=== PATIENT | male | born 2005 | race Two or more races ===

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

== ENCOUNTER 2024-02-19 16:53 | Emergency (ER) | payer OTHER ==
--- NOTE | 2024-02-19 17:19 | ED ---
Upper Extremity HPI - General Chief Complaint: Extremity Injury, Upper Stated Complaint: L Finger Injury Time Seen by Provider: 02/19/24 17:13 Source: patient, RN notes reviewed Mode of arrival: ambulatory Limitations: no limitations - History of Present Illness Initial Comments: 18-year-old male presenting with left hand injury 1 hour ago. States he was catching a football when his left fourth digit bent backwards. He states he has a cut and cannot move his finger. Last tetanus unknown. - Related Data Previous Rx's Medication Instructions Recorded Cephalexin [Keflex] 500 mg PO Q6HR 7 Days #28 cap 02/19/24 HYDROcodone/APAP 5-325MG [Nipomo 5] 1 each PO Q6HR PRN #12 tab 02/19/24 Allergies Allergy/AdvReac Type Severity Reaction Status Date / Time dinatap Allergy Rash/Hives Uncoded 02/19/24 16:58 Review of Systems ROS Statement: Those systems with pertinent positive or pertinent negative responses have been documented in the HPI. ROS Other: All systems not noted in ROS Statement are negative. Past Medical History Past Medical History: No Reported History History of Any Multi-Drug Resistant Organisms: None Reported Past Surgical History: Orthopedic Surgery Past Psychological History: No Psychological Hx Reported Smoking Status: Never smoker Past Alcohol Use History: None Reported Past Drug Use History: None Reported General Exam Limitations: no limitations General appearance: alert, in no apparent distress Head exam: Present: atraumatic, normocephalic, normal inspection Eye exam: Present: normal appearance, PERRL, EOMI. Absent: scleral icterus, conjunctival injection, periorbital swelling Left Upper Arm exam: Present: normal inspection, full ROM. Absent: tenderness, swelling Elbow exam: Present: normal inspection, full ROM. Absent: tenderness, swelling Forearm Wrist exam: Present: normal inspection, full ROM. Absent: tenderness, swelling Hand Wrist exam: Absent: normal inspection (5 cm laceration present on distal fourth digit of left hand with minimal bone protruding. Digit is fixed in hyperflexion. No active range of motion of PIP or DIP joint. Cap refill less than 2 seconds. Full sensation and radial pulses bilaterally), full ROM Course Vital Signs 02/19/24 02/19/24 16:55 18:43 Temperature 97.8 F 98 F Pulse Rate 71 76 Respiratory 16 18 Rate Blood Pressure 119/74 117/73 O2 Sat by Pulse 97 99 Oximetry Procedures - Laceration Laceration #1 Consent Obtained: verbal consent Indication: laceration Site: upper extremity Size (cm): 4 Description: linear Depth: [id number] Anesthetic Used: lidocaine 1%, without epi Amount (mls): 4 (Digital block) Pre-repair: wound explored, irrigated extensively Type of Sutures: nylon Size of Sutures: 4-0 Number of Sutures: 2 Technique: simple, interrupted Patient Tolerated Procedure: well, no complications Additional Comments: Neurovascularly intact status post procedure - Orthopedic Splinting/Casting Injury #1 Side: left Upper Extremity Injury Location: finger Upper Extremity Immobilizer: finger (other) Additional Comments: Neurovascularly intact status post splint Medical Decision Making - Medical Decision Making Was pt. sent in by a medical professional or institution (Dr. PA, ARTIST SUSPECT, urgent care, hospital, or [place] [facility] facility...) When possible be specific @ -No Did you speak to anyone other than the patient for history (EMS, parent, family, police, friend...)? What history was obtained from this source @ -No Did you review nursing and triage notes (agree or disagree)? Why? @ -I reviewed and agree with nursing and triage notes Were old charts reviewed (outside hosp., previous admission, EMS record, old EKG, old radiological studies, urgent care reports/EKG's, [place] health care facility records)? Report findings @ -No old charts were reviewed Differential Diagnosis (chest pain, altered mental status, abdominal pain women, abdominal pain men, vaginal bleeding, weakness, fever, dyspnea, syncope, headache, dizziness, GI bleed, back pain, seizure, CVA, palpatations, mental health, musculoskeletal)? @ -Differential Musculoskeletal Muscular strain, contusion, ligament sprain, fracture, arthritis, septic arthritis, bursitis, cellulitis, muscle spasm, nerve compression, DVT, arterial occlusion, herpes zoster, electrolyte abnormality, tumor.... This is not meant to be in all inclusive list EKG interpreted by me (3pts min.). @ -None X-rays interpreted by me (1pt min.). @ -X-ray revealed comminuted/displaced known intra-articular fracture of distal phalanx of fourth digit CT interpreted by me (1pt min.). @ -None done U/S interpreted by me (1pt. min.). @ -None done What testing was considered but not performed or refused? (CT, X-rays, U/S, labs)? Why? @ -None What meds were considered but not given or refused? Why? @ -None Did you discuss the management of the patient with other professionals (professionals i.e. , PA, ARTIST SUSPECT, lab, RT, psych nurse, social media developer, fast brim pouncer, teacher, commercial loan collection officer, case liner)? Give summary @ -I spoke with Daljit from [facility] who recommended patient follows up in office on Thursday. He recommended discharge after thorough irrigation, approximation with sutures, splint, and oral antibiotics. Was smoking cessation discussed for >3mins.? @ -No Was critical care preformed (if so, how long)? @ -No Were there social determinants of health that impacted care today? How? (Homelessness, low income, unemployed, alcoholism, drug addiction, transportation, low edu. Level, literacy, decrease access to med. care, [facility], rehab)? @ -No Was there de-escalation of care discussed even if they declined (Discuss DNR or withdrawal of care, Hospice)? DNR status @ -No What co-morbidities impacted this encounter? (DM, HTN, Smoking, COPD, CAD, Cancer, CVA, ARF, Chemo, Hep., AIDS, mental health diagnosis, sleep apnea, morbid obesity)? @ -None Was patient admitted / discharged? Hospital course, mention meds given and route, prescriptions, significant lab abnormalities, going to OR and other pertinent info. @ -Patient was discharged. Patient was seen and evaluated for left finger injury prior to arrival. Patient states he was catching a football when his lef t fourth digit bent backwards. Upon examination, patient has a 4 cm laceration on ventral aspect of fourth digit. Fourth digit is fixed in hyperflexion. Neurovascularly intact. Patient is given 2 g IV cefazolin, tetanus is updated, and patient is given IV morphine for pain. X-ray reveals comminuted/displaced not intra-articular fracture of distal phalanx of fourth digit. I spoke with Daljit from [facility] regarding this case who reviewed chart and imaging and recommended patient follows up in office on Thursday, and discharge after thorough irrigation, approximation with sutures, splint, and oral antibiotics. At this time, patient was given IV Toradol. Discussed diagnosis of open fracture with patient. Wound was thoroughly irrigated, nerve block was placed, 2 sutures were performed, and finger splint was placed with digit in full extension. Patient remains neurovascularly intact status post procedure. Strict return parameters discussed with patient and he shows understanding and agrees with plan. Instructed to follow-up with orthopedics on Thursday. Prescribed Keflex 4 times daily for 7 days and Nipomo for pain. Case was discussed with my attending Dr. Segovia. Patient discharged in stable condition. Undiagnosed new problem with uncertain prognosis? @ -No Drug Therapy requiring intensive monitoring for toxicity (Heparin, Nitro, Insulin, Cardizem)? @ -No Were any procedures done? @ -Wound thoroughly irrigated, 2 sutures performed, finger splint placed Diagnosis/symptom? @ -Open fracture of distal phalanx of fourth digit of left hand Acute, or Chronic, or Acute on Chronic? @ -Acute Uncomplicated (without systemic symptoms) or Complicated (systemic symptoms)? @ -Uncomplicated Side effects of treatment? @ -No Exacerbation, Progression, or Severe Exacerbation? @ -No Poses a threat to life or bodily function? How? (Chest pain, [place], [place], pneumonia, PE, COPD, DKA, ARF, appy, cholecystitis, CVA, Diverticulitis, Homicidal, Suicidal, threat to staff... and all critical care pts) @ -Low likelihood Disposition Clinical Impression: Open fracture of distal phalanx of digit of left hand Disposition: HOME SELF-CARE Condition: Stable Instructions (If sedation given, give patient instructions): Hand Fracture (ED) Additional Instructions: Please follow-up with orthopedics Thursday. Take antibiotics as prescribed. Keep splint in place. Please return to the Emergency Department if symptoms worsen or any other concerns. Prescriptions: Cephalexin [Keflex] 500 mg PO Q6HR 7 Days #28 cap HYDROcodone/APAP 5-325MG [Nipomo 5] 1 each PO Q6HR PRN #12 tab PRN Reason: Pain Is patient prescribed a controlled substance at d/c from ED?: Yes When asked, does pt state using other controlled substances?: No If prescribed controlled substance>3 days was MAPS reviewed?: Prescribed <3 Days If opioid is for acute pain is fill amount 7 days or less?: Yes Referrals: Jemima Cintron MD [Primary Care Provider] - 1-2 days Jerod Banda DO [Doctor of Osteopathic Medicine] - 1-2 days Time of Disposition: 20:34
[2024-02-19] MEDS: MORPHINE SULFATE 4 MG/ML SYRINGE IM STA (17:28)
[2024-02-19] MEDS: DIPH,PERTUS(ACELL)TETVAC-LF 0.5 ML VIAL IM ONE (17:46)
--- NOTE | 2024-02-19 18:29 | XR ---
PROCEDURE: XR hand complete LT - 3V DATE AND TIME: 02/19/2024 5:45 PM CLINICAL INDICATION: [facility]; left 4th digit injury TECHNIQUE: Department protocol COMPARISON: None FINDINGS / IMPRESSION: There is a comminuted/displaced nonintra-articular fracture of the distal phalanx of the fourth digit , most conspicuous in the lateral view. No other fractures.
[2024-02-19 18:44] VITALS: BP 117/73; RESP 18; TEMP 98
[2024-02-19] MEDS: ceFAZolin 1,000 MG VIAL (IM USE) IM STA (19:33)
[2024-02-19] MEDS: LIDOCAINE 1% INJ 10MG/ML (20 ML MDV) SQ ONE (19:33)
[2024-02-19] MEDS: KETOROLAC 15 MG/ML 1 ML VIAL IVP STA (20:09)
[2024-02-19 20:44] VITALS: PULSE 64
== END 2024-02-19 20:38 | disposition home or self-care (01) ==
LOC: EC 16:53
DX: S62.633B Displaced fracture of distal phalanx of left middle finger, initial encounter for open fracture (principal); Z88.8 Allergy status to other drugs, medicaments and biological substances; Z23 Encounter for immunization; W23.0XXA Caught, crushed, jammed, or pinched between moving objects, initial encounter; Y93.61 Activity, american tackle football
CPT/HCPCS: 73130; 90715; 99283; 90471; 96365; 96375; 96372; 12002; J2270; J0690; J2001; J1885

== ENCOUNTER → 2024-02-24 | Day surgery (SDC) | payer SELFPAY ==
--- NOTE | 2024-02-23 14:01 | P.HPOR ---
History of Present Illness H&P Date: 02/23/24 Subjective: This is a 18 year old male that presents today for initial evaluation regarding a left hand injury that occurred on 02/19/2024. He was playing football and went to catch a football and felt a pop and had immediate deformity in the ring finger. He was seen at the emergency department where x-rays were taken and antibiotics were given and he was placed in a splint. He denies any numbness or tingling. He denies any other areas of pain. Physical Examination: LUE: AIN/PIN/Radial/Ulnar/Median motor intact. Radial/Ulnar/Median SILT. 2+/4 Radial/Ulnar pulses palpated. 5/5 APB, 5/5 FDI. Negative Finkelsteins, negative CMC grind, negative Durkan's compression. Deformity of finer with 1cm transverse open wound at level of DIP joint crease. Imaging: X-Rays of the left hand multiview reviewed from ED demonstrate a displaced distal phalanx fracture of the ring finger, flexion of the proximal fragment present due to FDP pull. Minor comminution. 100% dorsal displacement. Impression: 1.) Left ring finger distal phalanx fracture, displaced. Plan: Diagnosis and treatment options were discussed with the patient. We discussed he has a significant deformity due to the unopposed pull of his flexor tendon at the proximal portion of his distal phalanx fracture. I recommend open reduction and pinning of his right ring finger distal phalanx fracture due to the amount of displacement. Risks and benefits of surgery including bleeding, infection, damage to surrounding tissue, need for further surgery, residual numbness were discussed and the patient wished to go forward with surgery. The patient was agreeable with this plan. -Jerod Banda DO Orthopedic Hand/Upper Extremity Surgeon Past Medical History Past Medical History: No Reported History History of Any Multi-Drug Resistant Organisms: None Reported Past Surgical History: Adenoidectomy, Orthopedic Surgery, Tonsillectomy Additional Past Surgical History / Comment(s): two knee acl repair lft knee Past Anesthesia/Blood Transfusion Reactions: No Reported Reaction Smoking Status: Never smoker - Past Family History Father Family Medical History: No Reported History Medications and Allergies Home Medications Medication Instructions Recorded Confirmed Type Cephalexin [Keflex] 500 mg PO Q6HR 7 Days #28 cap 02/19/24 02/23/24 Rx HYDROcodone/APAP 5-325MG [Zaleski 5] 1 each PO Q6HR PRN #12 tab 02/19/24 02/23/24 Rx Allergies Allergy/AdvReac Type Severity Reaction Status Date / Time dinatap Allergy Unknown Uncoded 02/23/24 13:00 Childhood Physical Examination Osteopathic Statement: *. No significant issues noted on an osteopathic structural exam other than those noted in the History and Physical/Consult.
[~2024-02-24] MED LIST: LIDOCAINE 1% INJ 10MG/ML (20 ML MDV) ONE; MIDAZOLAM 2 MG/2 ML VIAL ONE; PROPOFOL 10 MG/ML 20 ML VIAL IV ONE; fentaNYL (PF) 50 MCG/ML 2 ML AMP ONE
[2024-02-24 12:17] VITALS: RESP 16
[2024-02-24] MEDS: LACTATED RINGERS 1,000 ML IV SCH (12:17)
[2024-02-24] MEDS: LIDOCAINE 1% (10MG/ML) FOR IV START INTRADERMA ONE (12:18)
[2024-02-24] MEDS: ONDANSETRON 4 MG/2 ML VIAL IVP ONE (12:18)
[2024-02-24] MEDS: DEXAMETHASONE SOD PHOSPHATE 4 MG/ML 1 ML VIAL IV ONE (12:18)
[2024-02-24] MEDS: IV FLUID CONTINUATION 1,000 ML IV ONE ×2 (12:18→14:21)
[2024-02-24] MEDS: FAMOTIDINE 20 MG/2 ML VIAL IV ONE (12:20)
[2024-02-24] MEDS: BUPIVACAINE (PF) 0.5% 30 ML VIAL SQ ONE ×2 (13:44→14:36)
[2024-02-24 14:57] VITALS: TEMP 97.2
[2024-02-24] MEDS: HYDROmorphone 0.5 MG/0.5 ML SYRINGE IVP PRN (15:04)
[2024-02-24 15:51] VITALS: PULSE 69
[2024-02-24 16:05] VITALS: BP 121/69
--- NOTE | 2024-02-24 20:37 | P.OP ---
Date of Procedure: 02/24/24 Preoperative Diagnosis: Left ring finger open distal phalanx fracture Postoperative Diagnosis: 1.) Left ring finger open distal phalanx fracture 2.) Left ring finger flexor digitorum profundus tendon rupture Procedure(s) Performed: 1.) Left ring finger open distal phalanx fracture open reduction internal fixation 2.) Left ring finger zone 1 flexor tendon repair (Not in [place]). Implants: 0.045 K-wire x1 Anesthesia: GETA Surgeon: Jerod Banda Home Security Professional #1: Ricardo Quinonez Estimated Blood Loss (ml): 0 Pathology: none sent Condition: stable Disposition: PACU Description of Procedure: This is a year old 18 year old male who presents today for surgical intervention for a left ring finger injury after sustaining an open distal phalanx fracture while playing football. Risks and benefits of surgery were discussed with the patient including bleeding, damage to surrounding tissue, infection, need for further surgery as well as risks of anesthesia including pulmonary embolism and even and the patient wished to proceed with surgical intervention. The patient was seen in the pre-operative area by myself. Consent and H&P were completed and updated. The correct extremity was marked in the pre-operative area by myself and all other questions were answered. Operative Narrative: The patient was brought to the operating room by the department of anesthesia. They remained on the portable stretcher and a rolling hand table was brought to the side of the operative extremity. Pre-operative time out was performed indicating the correct patient, procedure and laterality. All in the room agreed. Pre-operative antibiotics were given prior to skin incision. The patient was then drifted off to sleep by the department of anesthesia. A nonsterile tourniquet was then applied to the operative extremity and the left upper extremity was then prepped and draped in normal sterile fashion. The operative extremity was the exsanguinated with an esmarch bandage and the tourniquet was inflated to 250mmHg. Previous sutures were taken out, the transverse laceration located just distal to the volar DIP joint crease was extended distally. Blunt dissection was taken down through subcutaneous tissues taking care to protect terminal branches of the radial and ulnar digital nerves. There appeared to be 3 components to the patients distal phalanx fracture. There was a transverse fracture at the junction of the proximal to middle third of the distal phalanx shaft creating two separate fragments, there was also a 3mm avulsed fragment off of the larger distal fragment that had the radial 60% of FDP tendon attached to it. The ulnar 40 percent of the FDP tendon was still completely intact at it's insertion on the proximal fragment. Thus, there was a 60% width FDP avulsion at it's insertion on the two fragments. The wound was copiously irrigated with sterile saline. A 0.045 K-wire was used to reduced and hold the two large fragments of the distal phalanx, this was advanced across the DIP joint into the middle pha lanx. The small 3mm avulsed fragment of bone attached to the radial 60% of the FDP tendon was found to be too small for any type of fixation therefore it was excised. After excision the tendon did not retract due to the intact ulnar 40%. A 4-0 ethibond suture was utilized to place 2 figure of 8 stitches to perform a side to side repair of the longituidnal FDP tendon laceration/avulsion, the location was too distal for any type of core suture. Suture end was tied and buried at the laceration site. The pin was cut and a pin cap was placed. The wound was then irrigated and skin closure was performed with 4-0 nylon suture. 10cc's of 0.5% bupivicaine was then used to perform a digital block. Sterile dressing was applied including adaptic, 4x4s, webril and a plaster dorsal blocking splint. Tourniquet was let down and the digit had immediate perfusion. The patient was then woken by the department of anesthesia and transferred to PACU in stable condition. Ricardo MCCULLOUGH was present to assist in hardware placement and manipulation of the hand. Jerod Banda D.O. Orthopedic Hand/Upper Extremity Surgeon
== END | disposition home or self-care (01) ==
LOC: OR 11:54
PROVIDERS: ATTEND Orthopaedic Surgery Hand Surgery
DX: S62.635B Displaced fracture of distal phalanx of left ring finger, initial encounter for open fracture (principal); Z90.89 Acquired absence of other organs; Z88.8 Allergy status to other drugs, medicaments and biological substances; X58.XXXA Exposure to other specified factors, initial encounter
CPT/HCPCS: 26350; 26765; J2250; J1100; J0690; J2405; J2001; J3010; J3490; J2704; J1170; J0665